=== PATIENT | female | born 1965 | race Caucasian/White ===

== ENCOUNTER 2019-07-27 09:58 | Day surgery (SDC) | payer OTHER ==
[2019-07-24 16:17] VITALS: BMI 26.1
[2019-07-27 12:38] VITALS: TEMP 98.6
[2019-07-27 12:59] VITALS: BP 121/71; PULSE 63
--- NOTE | 2019-07-28 16:28 | PATH ---
Surgical Pathology Report Patient Name: BILL SPIVEY [facility]. Rec. #: [id number] /Age/Gender: 1965 (Age: 54) / F Account: [id number] Location: [facility]-ENDOSCOPY Taken: 07/27/2019 Received: 07/27/2019 Reported: 07/28/2019 Physicians: Veto Hunt M.D. Specimen(s) Received CECUM POLYP Clinical History Screening colonoscopy Postoperative diagnosis: Colon polyp, diverticulosis, hemorrhoids, screening Final Diagnosis CECUM POLYP, BIOPSY: TUBULAR ADENOMA. Electronically Signed Linda Verduzco M.D. Gross Description Received in formalin, labeled "cecum polyp biopsy" is a perkins, irregular portion of soft tissue measuring 0.4 cm. in greatest dimension. The specimen is submitted in toto in one cassette. 07/27/2019 [facility]07/27/2019
== END 2019-07-27 13:30 | disposition home or self-care (01) ==
LOC: JASU-ENDO 09:58
PROVIDERS: ATTEND Internal Medicine Gastroenterology
PROC: 0DBH8ZX Excision of Cecum, Via Natural or Artificial Opening Endoscopic, Diagnostic (ICD-10-PCS; principal; 2019-07-27 11:00)
DX: Z12.11 Encounter for screening for malignant neoplasm of colon (principal); D12.0 Benign neoplasm of cecum; K57.30 Diverticulosis of large intestine without perforation or abscess without bleeding; K64.8 Other hemorrhoids; G40.909 Epilepsy, unspecified, not intractable, without status epilepticus
CPT/HCPCS: 81025; 88305-TC